=== PATIENT | female | born 1985 | race Asian ===

== ENCOUNTER → 2023-01-08 | Outpatient (CLI) | payer BC ==
[2023-01-08 10:45] LABS: BASO # 0.1 10^3/uL (0.0-0.2); EOS # 0.1 10^3/uL (0.0-0.5); EOS % 1.7 % (0.0-3.0); HEMATOCRIT 39.4 % (36.0-47.0); HEMOGLOBIN 12.4 g/dl (12.0-15.5); LYMPH # 2.9 10^3/uL (1.5-5.0); LYMPH % 35.7 % (24.0-44.0); MEAN CORPUSCULAR HEMOGLOBIN 27.8 pg (27.0-33.0); MEAN CORPUSCULAR HGB CONC 31.5 g/dl (32.0-36.5); MEAN CORPUSCULAR VOLUME 88.3 fl (80.0-96.0); MONO # 0.6 10^3/uL (0.0-0.8); MONO % 7.7 % (2.0-8.0); NEUTROPHILS # 4.4 10^3/uL (1.5-8.5); NEUTROPHILS % 53.5 % (36.0-66.0); PLATELET COUNT, AUTOMATED 350 10^3/uL (150-450); RED BLOOD COUNT 4.46 10^6/uL (4.00-5.40); WHITE BLOOD COUNT 8.1 10^3/uL (4.0-10.0)
[2023-01-08 11:21] LABS: HEMOGLOBIN A1c 5.2 % (4.0-6.0)
[2023-01-08 11:26] LABS: FREE T4 1.41 NG/DL (0.89-1.76)
[2023-01-08 11:27] LABS: ALBUMIN 3.5 G/DL (3.2-5.2); ALKALINE PHOSPHATASE 41 U/L (46-116); ALT/SGPT 15 U/L (7.0-40); AST/SGOT 11 U/L (<34); BILIRUBIN,TOTAL 1.4 MG/DL (0.3-1.2); BLOOD UREA NITROGEN 13 MG/DL (9-23); CARBON DIOXIDE LEVEL 25 MMOL/L (20-31); CHLORIDE LEVEL 107 MMOL/L (98-107); CHOLESTEROL LEVEL 178 MG/DL (<200); CHOLESTEROL RISK RATIO 4.74 (<5); CREATININE FOR GFR 0.93 MG/DL (0.55-1.30); GLOMERULAR FILTRATION RATE > 60.0 (>60); GLUCOSE, FASTING 95 MG/DL (60-100); HDL CHOLESTEROL 37.5 MG/DL (>40); LDL CHOLESTEROL 111.5 MG/DL (<100); NON-HDL-C 140.5 MG/DL; POTASSIUM SERUM 4.4 MMOL/L (3.5-5.1); SODIUM LEVEL 138 MMOL/L (136-145); TOTAL PROTEIN 7.3 G/DL (5.7-8.2); TRIGLYCERIDES LEVEL 145 MG/DL (<150)
[2023-01-08 11:29] LABS: THYROID STIMULATING HORMONE 0.648 uIU/ML (0.55-4.78)
== END ==
LOC: M PLALAB 07:56
PROVIDERS: ATTEND Student in an Organized Health Care Education/Training Program
DX: E05.00 Thyrotoxicosis with diffuse goiter without thyrotoxic crisis or storm (principal); E28.2 Polycystic ovarian syndrome; Z86.39 Personal history of other endocrine, nutritional and metabolic disease

== ENCOUNTER → 2023-01-16 | Outpatient (CLI) | payer BC | LOC: M RAD 12:33 → EDUNIT# 13:00 | PROVIDERS: ATTEND Student in an Organized Health Care Education/Training Program | DX: Z86.39 Personal history of other endocrine, nutritional and metabolic disease (principal); E07.89 Other specified disorders of thyroid ==

== ENCOUNTER → 2023-03-18 | Outpatient (CLI) | payer BC | LOC: M PLAIMG 14:23 | PROVIDERS: ATTEND Ophthalmology | DX: E05.80 Other thyrotoxicosis without thyrotoxic crisis or storm (principal) ==

== ENCOUNTER → 2023-05-09 | Outpatient (REF) | LOC: M EMP 12:58 | PROVIDERS: ATTEND Family Medicine | DX: Z11.52 Encounter for screening for COVID-19 (principal) ==

== ENCOUNTER → 2023-07-04 | Outpatient (REF) | payer BC | LOC: M SFHCPLAZ 17:25 | PROVIDERS: ATTEND Student in an Organized Health Care Education/Training Program | DX: J35.1 Hypertrophy of tonsils (principal); R05.1 Acute cough ==

== ENCOUNTER → 2023-07-30 | Outpatient (REF) | LOC: M EMP 13:36 | PROVIDERS: ATTEND Family Medicine | DX: Z11.52 Encounter for screening for COVID-19 (principal) ==

== ENCOUNTER → 2023-07-31 | Outpatient (REF) ==
[2023-07-31 13:07] LABS: RSV AMPLIFICATION NEGATIVE (NEGATIVE)
== END ==
LOC: M EMP 10:06
PROVIDERS: ATTEND Family Medicine
DX: Z11.52 Encounter for screening for COVID-19 (principal)

== ENCOUNTER → 2023-07-31 | Outpatient (REF) | payer BC | LOC: M SFHCPLAZ 13:28 | PROVIDERS: ATTEND Family Medicine | DX: R50.9 Fever, unspecified (principal) ==

== ENCOUNTER → 2024-01-12 | Outpatient (REF) | LOC: M EMP 13:05 | PROVIDERS: ATTEND Family Medicine | DX: Z11.52 Encounter for screening for COVID-19 (principal) ==

== ENCOUNTER → 2024-03-03 | Outpatient (REF) | LOC: M EMP 13:11 | PROVIDERS: ATTEND Family Medicine | DX: Z11.52 Encounter for screening for COVID-19 (principal) ==

== ENCOUNTER → 2024-06-29 | Outpatient (CLI) | payer BC ==
[2024-06-29 17:53] LABS: THYROID STIMULATING HORMONE 0.818 uIU/ML (0.55-4.78)
[2024-06-29 17:54] LABS: FREE T4 1.13 NG/DL (0.89-1.76)
== END ==
LOC: M LAB 16:04
PROVIDERS: ATTEND Student in an Organized Health Care Education/Training Program
DX: E05.00 Thyrotoxicosis with diffuse goiter without thyrotoxic crisis or storm (principal)

== ENCOUNTER → 2024-07-12 | Outpatient (CLI) | payer BC | LOC: M WHC 14:37 | DX: Z12.31 Encounter for screening mammogram for malignant neoplasm of breast (principal) ==

== ENCOUNTER → 2024-10-13 | Outpatient (CLI) | payer BC | LOC: M LAB 13:31 | DX: Z02.1 Encounter for pre-employment examination (principal) ==

== ENCOUNTER → 2025-04-14 | Outpatient (REF) | payer BC ==
[2025-04-16 14:43] LABS: HPV APTIMA Not Detected (Not Detected)
== END ==
LOC: M PLALAB 15:20
PROVIDERS: ATTEND Specialist
DX: Z12.4 Encounter for screening for malignant neoplasm of cervix (principal); R87.615 Unsatisfactory cytologic smear of cervix
CPT/HCPCS: 87624; G0123